=== PATIENT | female | born 1985 | race Caucasian/White ===

== ENCOUNTER → 2020-04-29 09:01 | Outpatient (BNVA) | payer OTHER, SELFPAY | PROVIDERS: Visit Provider Surgery | DX: Z76.89 Persons encountering health services in other specified circumstances (principal) | CPT/HCPCS: 99394 ==

== ENCOUNTER → 2020-06-12 08:08 | Outpatient (BNVA) | payer OTHER, SELFPAY | PROVIDERS: Visit Provider Surgery | DX: Z76.89 Persons encountering health services in other specified circumstances (principal) ==

== ENCOUNTER → 2020-07-15 08:04 | Outpatient (BNVA) | payer OTHER, SELFPAY | PROVIDERS: Visit Provider Surgery | DX: Z76.89 Persons encountering health services in other specified circumstances (principal) ==

== ENCOUNTER → 2020-08-19 07:29 | Outpatient (BNVA) | payer OTHER, SELFPAY | PROVIDERS: Visit Provider Surgery ==

== ENCOUNTER → 2020-10-02 08:42 | Outpatient (BNVA) | payer OTHER, SELFPAY | PROVIDERS: Visit Provider Surgery ==

== ENCOUNTER → 2020-11-15 08:07 | Outpatient (BNVA) | payer OTHER, SELFPAY | PROVIDERS: Visit Provider Surgery ==

== ENCOUNTER → 2020-12-20 08:26 | Outpatient (BNVA) | payer OTHER, SELFPAY | PROVIDERS: Visit Provider Surgery ==

== ENCOUNTER → 2021-02-14 06:57 | Outpatient (BNVA) | payer OTHER, SELFPAY | PROVIDERS: Visit Provider Surgery ==

== ENCOUNTER 2023-10-13 12:13 | Outpatient (AMB) | payer OTHER, SELFPAY ==
--- NOTE | 2023-10-13 13:02 | MHC.OFFVISWM ---
Intake VS Expanded 10/13/23 13:08 BP 133/80 Blood Pressure Location Rt brachial Blood Pressure Position Sitting Pulse 71 Pulse Source Pulse Oximeter Temp 97.9 F Temperature Source Temporal Artery Scan Pulse Oximetry 97 Oxygen Delivery Method Room Air Height 5 ft 1 in Weight 258 lb 3.2 oz BMI 48.8 Body Fat % 48.2 Body Fat Mass 124.6 Fat Free Mass 133.6 Visceral Fat Rating 16.0 Body Water % 37.1 Body Water Mass 96.0 Muscle Mass/Score 126.8 Basal Metabolic Rate/Score 1,919 Intake Visit Reasons: (OV) PO LSG 02/12/20 Allergies codeine [CODEINE] Allergy (Unknown, Verified 10/13/23 13:06) WEAKNESS Codeine Allergy (Unknown, Uncoded 11/22/19 00:00) dizziness Medication List - Last Reconciled 10/13/23 by FITZ Dobbs methylphenidate HCl 20 mg PO BID sertraline 150 mg PO Q OTHER DAY PRN HPI HPI Comments History of Present Illness Details This?is a?38?yo female who is s/p LSG 02/12/2020. Presents for 3 year 8 month post op visit. Weight at last visit on 02/14/2021 was 182.6 pounds with a BMI of 34.4, weight today is 258.2 pounds, representing a 75.6 pound weight gain with a BMI today of 48.8.? No complaints of nausea, emesis, abdominal pain or reflux, or constipation. Present meal plan includes: not following a plan currently Exercise routine includes: hiking once a week, takes walks during the day has a fitness watch [facility] Medical History (Updated 02/14/21 @ 09:34 by Giovanni Cabrales MD) Morbid obesity Intestinal malabsorption Surgical History (Updated 10/13/23 @ 13:07 by FITZ Dobbs) Obesity History of sleeve gastrectomy H/O oral surgery Family History Father No problems noted. Mother No problems noted. Brother No problems noted. Sister No problems noted. Sister No problems noted. Social History (Updated 05/15/20 @ 12:01 by Hung Santana CMA) Alcohol intake: current Alcohol intake frequency: holidays/special occasions only Patient Tobacco Use Status: Never used Tobacco Assessment & Plan Assessment & Plan (1) History of sleeve gastrectomy: Code(s): Z90.3 - Acquired absence of stomach [part of] (2) Morbid obesity: Code(s): E66.01 - Morbid (severe) obesity due to excess calories Plan Gave new high protein meal plan: 7-9am Celebrate 4:1 shake 2 scoops in 8oz UAM 10am-12pm 20g protein bar 1-3pm same shake 4-6pm 15g protein bar 7pm dinner- 6 forks protein, 6 forks salad/veg or 3f salad/3f healthy carb Discussed the importance of formal exercise, tracking calories, goal 2000/week. Labs ordered. RTC 4-6 weeks. Texted meal plan to pt and encouraged her to reach out between visits with any concerns. Patient is morbidly obese and is not considered stable at this time. I spent a total of 30 minutes reviewing/updating records, examining the patient and counseling the patient on weight management as detailed above. Orders: Orders Insulin Today E66.9 - Obesity, unspecified, Z90.3 - Acquired absence of stomach [part of] Hemoglobin A1c Today E66.9 - Obesity, unspecified, Z90.3 - Acquired absence of stomach [part of] Complete Blood Count Auto Diff Today E66.9 - Obesity, unspecified, Z90.3 - Acquired absence of stomach [part of] Lipid Panel Today E66.9 - Obesity, unspecified, Z90.3 - Acquired absence of stomach [part of] IRON PROFILE Today E66.9 - Obesity, unspecified, Z90.3 - Acquired absence of stomach [part of] Comprehensive Met. Panel Today E66.9 - Obesity, unspecified, Z90.3 - Acquired absence of stomach [part of] Vitamin B12 and Folate Today E66.9 - Obesity, unspecified, Z90.3 - Acquired absence of stomach [part of] Zinc Today E66.9 - Obesity, unspecified, Z90.3 - Acquired absence of stomach [part of] C Reactive Protein Today E66.9 - Obesity, unspecified, Z90.3 - Acquired absence of stomach [part of] Vitamin B1 Today E66.9 - Obesity, unspecified, Z90.3 - Acquired absence of stomach [part of] Vitamin A Today E66.9 - Obesity, unspecified, Z90.3 - Acquired absence of stomach [part of] TSH reflex Free T4 Today E66.9 - Obesity, unspecified, Z90.3 - Acquired absence of stomach [part of] Ferritin Today E66.9 - Obesity, unspecified, Z90.3 - Acquired absence of stomach [part of] Vitamin D 25-OH Total Today E66.9 - Obesity, unspecified, Z90.3 - Acquired absence of stomach [part of] Coding Level of Care Code Est Pt Level 4 (48528) Diagnoses History of sleeve gastrectomy Z90.3 Morbid obesity E66.01
[2023-10-13 13:08] VITALS: BP 133/80; PULSE 71; TEMP 36.6; O2SAT 97; BMI 48.8
== END 2023-10-13 13:32 | disposition home or self-care (01) ==
PROVIDERS: Visit Provider Physician Assistant Surgical
DX: E66.01 Morbid (severe) obesity due to excess calories (principal); Z68.42 Body mass index [BMI] 45.0-49.9, adult; Z90.3 Acquired absence of stomach [part of]; Z98.84 Bariatric surgery status
CPT/HCPCS: 99214

== ENCOUNTER → 2023-10-13 12:13 | Outpatient (BNVA) | payer OTHER, SELFPAY | PROVIDERS: Visit Provider Physician Assistant Surgical ==

== ENCOUNTER 2023-10-16 08:26 | Outpatient (REF) | payer OTHER, SELFPAY ==
[2023-10-16 08:51] LABS: MANUAL DIFF FLAG NO
[2023-10-16 09:11] LABS: Basophils Percent Auto 0.5 % (0-2); Eosinophils Absolute Auto 0.1 X10*3/uL (0.0-0.4); Eosinophils Percent Auto 0.9 % (0-4); Hematocrit 36.4 % (37.0-47.0); Hemoglobin 11.6 g/dl (12.0-16.0); Imm Gran Abs Auto 0.01 X10*3/uL (0.00-0.03); Imm Gran Pct Auto 0.2 % (0.0-0.4); Lymphocytes Absolute Auto 1.8 X10*3/uL (1.2-4.9); Lymphocytes Percent Auto 26.6 % (20-40); Mean Corpuscular HGB Conc 31.9 g/dl (31.0-35.0); Mean Corpuscular Hemoglobin 24.6 pg (27.0-33.0); Mean Corpuscular Volume 77.3 fL (80.0-98.0); Mean Platelet Volume 9.7 fL (9.4-12.3); Monocytes Absolute Auto 0.7 X10*3/uL (0.1-1.2); Monocytes Percent Auto 11.2 % (2-11); Neutrophils Percent Auto 60.6 % (45-73); Platelet Count 276 X10*3/uL (160-400); Red Blood Count 4.71 X10*6/uL (4.20-5.50); Red Cell Distribution Width 14.2 % (11.0-16.0); White Blood Count 6.6 X10*3/uL (4.8-10.8)
[2023-10-16 09:19] LABS: Estimated Average Glucose 111 mg/dL; Hemoglobin A1c % 5.5 % (<6.0)
[2023-10-16 09:39] LABS: Alanine Aminotransferase 16 U/L (0-31); Albumin Level 3.9 g/dL (3.5-5.0); Alkaline Phosphatase 117 U/L (39-117); Anion Gap 12 (12-20); Aspartate Amino Transferase 18 U/L (5-31); Bilirubin Total 0.3 mg/dL (0.0-1.0); Blood Urea Nitrogen 11 mg/dL (9-16); C Reactive Protein 0.57 mg/dL (< or = 0.50); Calcium 9.4 mg/dL (8.4-10.2); Carbon Dioxide 27 mmol/L (22-29); Chloride 108 mmol/L (96-108); Cholesterol 168 mg/dL (<200); Estimated Glomerular Filt Rate > 60; Glucose Random 95 mg/dL (60-115); HDL Cholesterol 59 mg/dL (>40); Iron 88 mcg/dL (30-160); LDL Cholesterol Calculated 96 mg/dL (<100); Percent Iron Saturation 29 % (15-50); Potassium 4.2 mmol/L (3.3-5.1); Sodium 143 mmol/L (135-145); Total Iron Binding Capacity 302 mcg/dL (228-428); Total Protein 6.8 g/dL (6.5-8.0); Triglycerides 69 mg/dL (<150); Unsaturated Iron Binding 214 ug/dL
[2023-10-16 10:13] LABS: Ferritin 12 ng/mL (10-122); TSH reflex Free T4 0.55 uIU/mL (0.32-4.0); Vitamin D 25-OH Total 41.9 ng/mL (>30)
[2023-10-16 10:31] LABS: Insulin 9 uU/mL (2-29)
[2023-10-16 10:33] LABS: Folate 14.1 ng/mL (> or = 4.0); Vitamin B12 528 pg/mL (200-900)
[2023-10-19 03:19] LABS: Zinc 82 mcg/dL (60-130)
[2023-10-21 15:39] LABS: Vitamin B1 19 nmol/L (8-30)
[2023-10-21 17:28] LABS: Vitamin A 48 mcg/dL (38-98)
== END 2023-10-16 08:27 | disposition home or self-care (01) ==
LOC: HO.LAB 08:26
PROVIDERS: PCP Student in an Organized Health Care Education/Training Program; Visit Provider Physician Assistant Surgical
DX: E66.9 Obesity, unspecified (principal); Z90.3 Acquired absence of stomach [part of]
CPT/HCPCS: 36415; 80053; 80061; 82306; 82607; 82728; 82746; 83036; 83525; 83540; 84425; 84443; 84590; 84630; 85025; 86140